=== PATIENT | male | born 1975 | race Caucasian/White ===

== ENCOUNTER 2017-07-30 07:18 | Emergency (ER) | payer SELFPAY ==
[2017-07-30] MEDS ORDERED: Metoclopramide HCl 10 MG/2 ML VIAL ONE (08:09)
[2017-07-30] MEDS ORDERED: diphenhydrAMINE HCl 50 MG/ML 1 ML VIAL ONE (08:09)
[2017-07-30] MEDS ORDERED: Acetaminophen 500 MG TAB ONE (08:09)
[2017-07-30 08:25] LABS: #Lymphocytes 1.1 thou/uL (1.20-3.40); #Monocytes 0.6 thou/uL (0.11-0.59); %Basophils 0.2 % (0.0-1.0); %Eosinophils 0.7 % (0.0-10.0); %Lymphocytes 16.4 % (21.0-51.0); %Monocytes 8.6 % (0.0-10.0); Hematocrit 47.5 % (42.0-52.0); Mean Platelet Volume 6.6 fL (7.4-10.4); Red Blood Cell (RBC) Count 4.93 mill/uL (4.70-6.10); White Blood Cell (WBC) Count 6.7 thou/uL (4.8-10.8)
[2017-07-30 08:50] LABS: ALT (SGPT) 50 U/L (8-55); AST (SGOT) 46 U/L (5-34); Alkaline Phosphatase 60 U/L (40-150); Anion Gap 16 mmol/L (10-20); BUN (Urea Nitrogen) 16 mg/dL (8.9-20.6); Bilirubin, Total 1.3 mg/dL (0.2-1.2); Calc. Creatinine Clearance 0 mL/min (70-130); Calcium 9.3 mg/dL (7.8-10.44); Carbon Dioxide 20 mmol/L (22-29); Chloride 102 mmol/L (98-107); Estimated GFR-MDRD 77; Globulin 3.4 g/dL (2.4-3.5); Protein, Total 7.3 g/dL (6.0-8.3)
[2017-07-30 08:52] LABS: Troponin I Less than 0.010 ng/mL (< 0.028)
[2017-07-30 09:36] LABS: Amphetamine Not Detected (NotDetected); Methadone Not Detected (NotDetected); Methamphetamine Not Detected (NotDetected)
[2017-07-30] MEDS ORDERED: Lorazepam 2 MG/ML VIAL ONE (10:28)
== END 2017-07-30 12:25 | disposition home or self-care (01) ==
LOC: ERS 07:18
DX: F41.0 Panic disorder [episodic paroxysmal anxiety] (principal); I10 Essential (primary) hypertension; F17.220 Nicotine dependence, chewing tobacco, uncomplicated
CPT/HCPCS: 36415; 80053; 80306; 82553; 84484; 85025; 93005; 96361; 96374; 96375; J1200; J2060; J2765

== ENCOUNTER 2019-03-08 21:20 | Emergency (ER) | payer OTHER, SELFPAY ==
[2019-03-08] MEDS ORDERED: Lorazepam 2 MG/ML VIAL ONE ×2 (21:44→23:38)
--- NOTE | 2019-03-08 21:52 | RAD ---
XR Chest 1 View Portable History: [Pain] Comparison: Chest radiograph December 17, 2016 Findings: There is either new elevation of the left hemidiaphragm or a large subpulmonic effusion. Ri ght lung is clear. No pneumothorax. Tendon suture anchors are present of the left humeral head. Subcutaneous emphysema projects over the left shoulder, as expected postsurgery. Impression: Either new elevation left hemidiaphragm versus a subpulmonic effusion.
[2019-03-08 22:03] LABS: #Lymphocytes 1.4 thou/uL (1.20-3.40); #Monocytes 0.9 thou/uL (0.11-0.59); #Neutrophils 7.7 thou/uL (1.40-6.50); %Basophils 0.1 % (0.0-1.0); %Eosinophils 0.5 % (0.0-10.0); %Lymphocytes 13.6 % (21.0-51.0); %Monocytes 9.3 % (0.0-10.0); %Neutrophils 76.5 % (42.0-75.0); Hemoglobin 13.7 g/dL (14.0-18.0); Mean Corpuscular HGB CONC 33.6 g/dL (32.0-36.0); Mean Corpuscular Hemoglobin 30.8 pg (27.0-31.0); Mean Corpuscular Volume 91.4 fL (78.0-98.0); Mean Platelet Volume 7.1 fL (7.4-10.4); Platelet Count 268 thou/uL (130-400); Red Blood Cell (RBC) Count 4.47 mill/uL (4.70-6.10)
[2019-03-08 22:22] LABS: ALT (SGPT) 18 U/L (8-55); AST (SGOT) 34 U/L (5-34); Albumin 3.6 g/dL (3.5-5.0); Alkaline Phosphatase 58 U/L (40-150); Anion Gap 16 mmol/L (10-20); BUN (Urea Nitrogen) 17 mg/dL (8.9-20.6); Calc. Creatinine Clearance 0 mL/min (70-130); Calcium 8.4 mg/dL (7.8-10.44); Carbon Dioxide 22 mmol/L (22-29); Chloride 104 mmol/L (98-107); Estimated GFR-MDRD 73; Globulin 3.5 g/dL (2.4-3.5); Glucose 135 mg/dL (70-105); Protein, Total 7.1 g/dL (6.0-8.3); Sodium 137 mmol/L (136-145)
[2019-03-08 23:09] LABS: Bilirubin Negative (Negative); Blood, Urine Negative (Negative); Clarity CLEAR (Clear); Glucose, Urine (Dipstick) Negative (Negative); Leukocyte Negative (Negative); Nitrite Negative (Negative); Protein, Urine (Dipstick) Negative (Neg-Trace); Specific Gravity, Urine 1.009 (1.002-1.036); Urobilinogen 0.2 mg/dL (0.2-1.0); pH, Urine 6.5 (5.0-9.0)
[2019-03-08 23:54] LABS: Troponin I Less than 0.010 ng/mL (< 0.028)
== END 2019-03-08 23:55 | disposition home or self-care (01) ==
LOC: ERS 21:20
DX: M96.89 Other intraoperative and postprocedural complications and disorders of the musculoskeletal system (principal); R50.82 Postprocedural fever; R00.0 Tachycardia, unspecified; F41.9 Anxiety disorder, unspecified; I10 Essential (primary) hypertension; F17.220 Nicotine dependence, chewing tobacco, uncomplicated; Z79.899 Other long term (current) drug therapy
CPT/HCPCS: 71045; 80053; 81003; 83605; 84484; 85025; 87040; 93005; 94799; 96361; 96374; 96376; J2060

== ENCOUNTER 2019-03-29 20:15 | Emergency (ER) | payer SELFPAY ==
[~2019-03-29 20:15] MED LIST: ISOVUE-370 76%-LOCM 1 ML ONE
[2019-03-29] MEDS ORDERED: Morphine 4 MG/ML VIAL ONE (21:16)
[2019-03-29] MEDS ORDERED: Lorazepam 2 MG/ML VIAL ONE (21:16)
[2019-03-29 21:38] LABS: #Basophils 0.1 thou/uL (0.0-0.2); #Lymphocytes 1.6 thou/uL (1.20-3.40); #Neutrophils 6.9 thou/uL (1.40-6.50); %Basophils 0.6 % (0.0-1.0); %Eosinophils 0.5 % (0.0-10.0); %Lymphocytes 16.5 % (21.0-51.0); %Monocytes 10.7 % (0.0-10.0); %Neutrophils 71.7 % (42.0-75.0); Mean Corpuscular HGB CONC 34.1 g/dL (32.0-36.0); Mean Corpuscular Hemoglobin 30.8 pg (27.0-31.0); Mean Corpuscular Volume 90.2 fL (78.0-98.0); Mean Platelet Volume 6.4 fL (7.4-10.4); Platelet Count 355 thou/uL (130-400); RBC Distribution Width 11.5 % (11.5-14.5); Red Blood Cell (RBC) Count 4.24 mill/uL (4.70-6.10); White Blood Cell (WBC) Count 9.6 thou/uL (4.8-10.8)
[2019-03-29 22:06] LABS: ALT (SGPT) 21 U/L (8-55); AST (SGOT) 23 U/L (5-34); Albumin 3.5 g/dL (3.5-5.0); Alkaline Phosphatase 96 U/L (40-150); Anion Gap 18 mmol/L (10-20); BUN (Urea Nitrogen) 27 mg/dL (8.9-20.6); Bilirubin, Total 0.6 mg/dL (0.2-1.2); CK (CPK) 163 U/L (30-200); Calc. Creatinine Clearance 0 mL/min (70-130); Calcium 8.9 mg/dL (7.8-10.44); Carbon Dioxide 17 mmol/L (22-29); Chloride 103 mmol/L (98-107); Estimated GFR-MDRD 74; Globulin 3.2 g/dL (2.4-3.5); Glucose 118 mg/dL (70-105); Lipase 21 U/L (8-78); Potassium 4.3 mmol/L (3.5-5.1); Protein, Total 6.7 g/dL (6.0-8.3); Sodium 134 mmol/L (136-145)
--- NOTE | 2019-03-29 22:16 | CT ---
CTA CHEST WITH IV CONTRAST: Date: 03/29/19 Multiple axial tomograms obtained through chest following angio protocol with multiplanar reconstruct ion and 3D postprocessing. INDICATION: Chest pain. FINDINGS: Pulmonary arteries show adequate opacification. There is no evidence of pulmonary embolus identified. The lung boateng are well aerated and are clear. No infiltrate. Mediastinum unremarkable. IMPRESSION: 1. No evidence of pulmonary embolus. 2. No acute lung process. POS: [facility]
[2019-03-30] MEDS ORDERED: Morphine 4 MG/ML VIAL ONE (00:36)
== END 2019-03-30 01:50 | disposition home or self-care (01) ==
LOC: ERS 20:15
DX: F41.9 Anxiety disorder, unspecified (principal); G89.29 Other chronic pain; I10 Essential (primary) hypertension; F17.220 Nicotine dependence, chewing tobacco, uncomplicated; Z79.899 Other long term (current) drug therapy; Z79.891 Long term (current) use of opiate analgesic
CPT/HCPCS: 36415; 71275; 80053; 82550; 83690; 84484; 85025; 85379; 93005; 96361; 96374; 96375; 96376; J2060; J2270; Q9966